=== PATIENT | male | born 1945 | race Caucasian/White ===

== ENCOUNTER → 2021-05-07 | Outpatient (CLI) | payer OTHER ==
[~2021-05-07] MED LIST: CATAFLAM50 MG; LOPRESSOR HCT 51 TAB; NORVASC5 MG; PROTONIX40 MG PO; SIMVASTATIN5 MG; VASOTEC10 MG
== END | disposition home or self-care (01) ==
LOC: RAD 13:50
PROVIDERS: ATTEND Internal Medicine Rheumatology
DX: M25.552 Pain in left hip (principal); M25.551 Pain in right hip; M15.0 Primary generalized (osteo)arthritis; M53.3 Sacrococcygeal disorders, not elsewhere classified

== ENCOUNTER 2021-08-19 01:00 | Outpatient (CLI) | payer OTHER | END 2021-08-19 01:30 | disposition home or self-care (01) | LOC: PPH VACUNA 01:00 | PROVIDERS: ATTEND Emergency Medicine Pediatric Emergency Medicine | DX: Z23 Encounter for immunization (principal) ==

== ENCOUNTER 2022-02-25 19:34 | Emergency (ER) | payer OTHER ==
[~2022-02-25] VITALS: Ht 175.3 cm; Wt 73.9 kg
[2022-02-25] MEDS ORDERED: SIMVASTATIN40 MG PO (19:51)
[2022-02-25] MEDS ORDERED: PREDNISONE20 M1 PO (19:52)
[2022-02-25] MEDS ORDERED: OXYBUTYNIN CHLOR5 M1 PO (19:52)
[2022-02-25] MEDS ORDERED: ALLOPURINOL100 MG PO (19:53)
== END 2022-02-25 21:57 | disposition home or self-care (01) ==
LOC: ER 19:34
DX: J22 Unspecified acute lower respiratory infection (principal); Z20.822 Contact with and (suspected) exposure to COVID-19; Z91.041 Radiographic dye allergy status

== ENCOUNTER 2023-10-13 09:55 | Outpatient (CLI) | payer OTHER ==
[~2023-10-13 09:55] MED LIST changes: +ALLOPURINOL100 MG PO; +OXYBUTYNIN CHLOR5 M1 PO; +PREDNISONE20 M1 PO; +SIMVASTATIN40 MG PO
== END 2023-10-13 10:08 | disposition home or self-care (01) ==
LOC: TOM 09:55
DX: R59.0 Localized enlarged lymph nodes (principal); I71.00 Dissection of unspecified site of aorta
CPT/HCPCS: 70492; 71260; 74178; Q9965

== ENCOUNTER 2024-12-26 15:10 | Outpatient (CLI) | payer OTHER ==
[~2024-12-26 15:10] MED LIST changes: +PLAVIX75 MG PO; +SIMVASTATIN80 MG PO; +UROXATRAL10 MG PO
== END 2024-12-26 15:18 | disposition home or self-care (01) ==
LOC: RAD 15:10
DX: M17.0 Bilateral primary osteoarthritis of knee (principal)